=== PATIENT | female | born 2000 | race African-American/Black ===

== ENCOUNTER 2021-09-02 09:02 | Observation (INO) | payer MEDICAID, OTHER, SELFPAY ==
[2021-09-02] MEDS ORDERED: Pantoprazole 40 MG VIAL ONE (09:29)
[2021-09-02] MEDS ORDERED: Ketorolac Tromethamine 30 MG/ML VIAL ONE ×2 (09:29→21:38)
[2021-09-02 09:42] LABS: #Basophils 0.1 thou/uL (0.0-0.2); #Lymphocytes 1.3 thou/uL (1.20-3.40); #Monocytes 0.8 thou/uL (0.11-0.59); #Neutrophils 15.3 thou/uL (1.40-6.50); %Basophils 0.3 % (0.0-1.0); %Eosinophils 0.2 % (0.0-10.0); %Lymphocytes 7.2 % (21.0-51.0); %Monocytes 4.5 % (0.0-10.0); %Neutrophils 87.9 % (42.0-75.0); Hemoglobin 12.8 g/dL (12.0-16.0); Mean Corpuscular HGB CONC 32.4 g/dL (32.0-36.0); Mean Corpuscular Hemoglobin 25.8 pg (27.0-31.0); Mean Corpuscular Volume 79.8 fL (78.0-98.0); Platelet Count 328 thou/uL (130-400); RBC Distribution Width 15.1 % (11.5-14.5); Red Blood Cell (RBC) Count 4.95 mill/uL (4.20-5.40); White Blood Cell (WBC) Count 17.4 thou/uL (4.8-10.8)
[2021-09-02 10:02] LABS: ALT (SGPT) 129 U/L (8-55); AST (SGOT) 266 U/L (5-34); Albumin 3.9 g/dL (3.5-5.0); Alkaline Phosphatase 164 U/L (40-110); Anion Gap 10 mmol/L (10-20); BUN (Urea Nitrogen) 16 mg/dL (7.0-18.7); Bilirubin, Total 0.5 mg/dL (0.2-1.2); Calc. Creatinine Clearance 0 mL/min (70-130); Calcium 9.5 mg/dL (7.8-10.44); Carbon Dioxide 27 mmol/L (22-29); Chloride 103 mmol/L (98-107); Globulin 4.1 g/dL (2.4-3.5); Glucose 106 mg/dL (70-105); Lipase 22 U/L (8-78); Potassium 4.3 mmol/L (3.5-5.1); Sodium 136 mmol/L (136-145)
[2021-09-02 10:04] LABS: BHCG - Serum Negative (NEGATIVE); Pregs Control Background? CLEAR/WHITE (CLR/WHITE); Pregs Control Bar Appear? YES (CONTROL BAR)
[2021-09-02 10:36] LABS: Bacteria/HPF 1+ HPF (None Seen); Bilirubin Negative (Negative); Blood, Urine Negative (Negative); Clarity Clear (Clear); Glucose, Urine (Dipstick) Normal (Negative); Ketone, Urine Negative (Negative); Leukocyte 25 Leu/uL (Negative); Nitrite Negative (Negative); Protein, Urine (Dipstick) 30 mg/dL (Neg-Trace); RBC/HPF 0-3 HPF (0-3); Specific Gravity, Urine 1.031 (1.002-1.036); Urobilinogen 3 mg/dL (Less than 2); pH, Urine 7.5 (5.0-9.0)
[2021-09-02] MEDS ORDERED: CEFAZOLIN 2 GM in Premix Bag 1 BAG IVPB SCH (10:45)
[2021-09-02] MEDS ORDERED: CEFAZOLIN 2 GM in Sodium Chloride 0.9% 100 ML IVPB SCH (11:15)
[2021-09-02] MEDS ORDERED: Piperacillin/Tazobactam 4.5 GM in Sodium Chloride 0.9% 100 ML IVPB SCH (11:30)
[2021-09-02] MEDS ORDERED: Scopolamine 1.5 mg/72 hour Patch ONE (11:31)
[2021-09-02] MEDS ORDERED: Midazolam HCl 2 mg/2 ml Vial ONE (11:31)
[2021-09-02] MEDS ORDERED: Fentanyl 100 MCG/2 ML VIAL ONE ×3 (11:31→21:34)
[2021-09-02 11:50] LABS: SARS-CoV-2 NAA Rapid Test Not Detected (NotDetected)
[2021-09-02] MEDS ORDERED: Bupivacaine PF 0.5% 30 ML VIAL ONE (13:39)
[2021-09-02] MEDS ORDERED: Iothalamate Meglumine 60% 50 ML VIAL FS ONE (13:39)
[2021-09-02] MEDS ORDERED: Lidocaine 1% w/Epinephrine 1:100K 20 ML VIAL ONE (13:39)
[2021-09-02] MEDS ORDERED: SUGAMMADEX SODIUM 200 MG/2 ML VIAL ONE (13:45)
[2021-09-02] MEDS ORDERED: Dexmedetomidine 200 MCG/2 ML VIAL ONE (14:04)
[2021-09-02] MEDS ORDERED: Phenylephrine 10 MG/ML VIAL ONE (14:06)
[2021-09-02] MEDS ORDERED: Sodium Chloride 0.9% 0 ML ONE (14:33)
[2021-09-02] MEDS ORDERED: CEFAZOLIN 1 GM VIAL ONE ×2 (14:33→14:34)
[2021-09-02] MEDS ORDERED: Ondansetron PF 4 MG/2 ML Vial ONE (19:14)
[2021-09-02] MEDS ORDERED: Dexamethasone 20 MG/5 ML VIAL ONE (19:14)
[2021-09-02] MEDS ORDERED: PHENYLEPHRINE-NS 100 MCG/ML 10 ML SYRINGE ONE (19:14)
[2021-09-02] MEDS ORDERED: PROPOFOL 200 MG/20 ML VIAL ONE (19:14)
[2021-09-02] MEDS ORDERED: Rocuronium Bromide 10 MG/ML (10ML VIAL) ONE (19:14)
[2021-09-02] MEDS ORDERED: Glycopyrrolate 0.2 MG/ML 5 ML SYRINGE ONE (19:14)
[2021-09-02] MEDS ORDERED: Lidocaine 1% PF 5 ML VIAL ONE (19:14)
[2021-09-02] MEDS ORDERED: hydrALAZINE 20 MG/ML VIAL SLOW IVP PRN (20:56)
[2021-09-02] MEDS ORDERED: Promethazine HCl 25 MG/ML VIAL IM PRN ×2 (20:56→21:01)
[2021-09-02] MEDS ORDERED: Ondansetron PF 4 MG/2 ML Vial IVP PRN (20:56)
[2021-09-02] MEDS ORDERED: Dextrose 50% Abboject 50 ML SYRINGE SLOW IVP PRN (20:56)
[2021-09-02] MEDS ORDERED: Mag-Al 1200 mg/1200 mg/30 ML UDCUP PO PRN (20:56)
[2021-09-02] MEDS ORDERED: Dextrose 5% in Water 1,000 ML IV PRN (20:56)
[2021-09-02] MEDS ORDERED: Calcium Carbonate 500 MG ChewTAB PO PRN (20:56)
[2021-09-02] MEDS ORDERED: traMADol HCl 50 MG TAB PO PRN ×2 (20:58)
[2021-09-02] MEDS ORDERED: Ketorolac Tromethamine 30 MG/ML VIAL IVP PRN ×2 (20:58→21:01)
[2021-09-02] MEDS ORDERED: Promethazine HCl 25 MG/ML VIAL IVPB PRN (21:01)
[2021-09-02] MEDS ORDERED: Ondansetron HCl/PF 4 MG/2 ML Vial IVP PRN (21:01)
[2021-09-02] MEDS: D5 1/2 NS w/20 mEq KCL 1,000 ML IV SCH (22:54)
[2021-09-02] MEDS: Famotidine/PF 20 mg/2ml Vial SLOW IVP SCH (22:54)
[2021-09-02 23:21] VITALS: BMI 48.1
[2021-09-03] MEDS: Acetaminophen 325 MG TAB PO SCH ×3 (00:20→11:35)
[2021-09-03] MEDS: Famotidine 20 MG TAB PO SCH ×2 (01:37→08:19)
[2021-09-03 04:48] LABS: #Basophils 0.1 thou/uL (0.0-0.2); #Lymphocytes 0.9 thou/uL (1.20-3.40); #Monocytes 0.1 thou/uL (0.11-0.59); #Neutrophils 10.4 thou/uL (1.40-6.50); %Basophils 0.5 % (0.0-1.0); %Eosinophils 0.1 % (0.0-10.0); %Lymphocytes 7.4 % (21.0-51.0); %Monocytes 1.2 % (0.0-10.0); %Neutrophils 90.8 % (42.0-75.0); Hemoglobin 11.7 g/dL (12.0-16.0); Mean Corpuscular Hemoglobin 25.6 pg (27.0-31.0); Mean Corpuscular Volume 79.9 fL (78.0-98.0); Mean Platelet Volume 8.3 fL (7.4-10.4); Platelet Count 312 thou/uL (130-400); RBC Distribution Width 15.2 % (11.5-14.5); Red Blood Cell (RBC) Count 4.57 mill/uL (4.20-5.40); White Blood Cell (WBC) Count 11.5 thou/uL (4.8-10.8)
[2021-09-03 05:11] LABS: ALT (SGPT) 165 U/L (8-55); AST (SGOT) 110 U/L (5-34); Albumin 3.6 g/dL (3.5-5.0); Alkaline Phosphatase 148 U/L (40-110); Anion Gap 11 mmol/L (10-20); BUN (Urea Nitrogen) 9 mg/dL (7.0-18.7); Bilirubin, Total 0.3 mg/dL (0.2-1.2); Calc. Creatinine Clearance 275 mL/min (70-130); Calcium 8.7 mg/dL (7.8-10.44); Carbon Dioxide 23 mmol/L (22-29); Chloride 106 mmol/L (98-107); Globulin 3.4 g/dL (2.4-3.5); Glucose 145 mg/dL (70-105); Lipase 12 U/L (8-78); Potassium 4.5 mmol/L (3.5-5.1); Sodium 135 mmol/L (136-145)
[2021-09-03] MEDS: D5 1/2 NS w/20 mEq KCL 1,000 ML IV SCH (05:35)
[2021-09-03 07:51] VITALS: BP 103/67; TEMP 97.6
[2021-09-03] MEDS: Famotidine/PF 20 mg/2ml Vial SLOW IVP SCH (08:20)
[2021-09-03] MEDS ORDERED: FLU VACC QS2021-22(6MOS UP)/PF 60 MCG/0.5 ML SYRINGE IM ONE (09:00)
== END 2021-09-03 12:31 | disposition home or self-care (01) ==
LOC: ERS 09:02 → SURG A 12:46 → SDC 12:46 → SURG A 21:01
PROVIDERS: ADMIT Surgery; ATTEND Surgery
PROC: 0FT44ZZ Resection of Gallbladder, Percutaneous Endoscopic Approach (ICD-10-PCS; principal; 2021-09-02)
DX: K80.12 Calculus of gallbladder with acute and chronic cholecystitis without obstruction (principal); K66.0 Peritoneal adhesions (postprocedural) (postinfection); E66.01 Morbid (severe) obesity due to excess calories; Z68.42 Body mass index [BMI] 45.0-49.9, adult; Z20.822 Contact with and (suspected) exposure to COVID-19
CPT/HCPCS: 36415; 76705; 80053; 81003; 81015; 83690; 84703; 85025; 88304; 90471; 90686; 94760; 96365; 96374; 96375; C9113; G0008; G0378; J0690; J1100; J1610; J1885; J2250; J2370; J2405; J2543; J2704; J3010; J3480; J3490; Q9961-U8; S0020; S0028; U0002

== ENCOUNTER 2021-09-06 10:43 | Emergency (ER) | payer OTHER ==
[2021-09-06] MEDS ORDERED: Ondansetron PF 4 MG/2 ML Vial ONE (12:19)
[2021-09-06] MEDS ORDERED: Morphine 4 MG/ML VIAL ONE (12:19)
[2021-09-06 12:26] LABS: BHCG - Serum Negative (NEGATIVE); Pregs Control Background? CLEAR/WHITE (CLR/WHITE); Pregs Control Bar Appear? YES (CONTROL BAR)
[2021-09-06 12:27] LABS: Hemoglobin 12.3 g/dL (12.0-16.0); Mean Corpuscular HGB CONC 32.3 g/dL (32.0-36.0); Mean Corpuscular Hemoglobin 25.8 pg (27.0-31.0); Mean Corpuscular Volume 79.9 fL (78.0-98.0); Mean Platelet Volume 7.8 fL (7.4-10.4); Platelet Count 314 thou/uL (130-400); RBC Distribution Width 15.5 % (11.5-14.5); Red Blood Cell (RBC) Count 4.77 mill/uL (4.20-5.40)
[2021-09-06 12:47] LABS: ALT (SGPT) 45 U/L (8-55); AST (SGOT) 17 U/L (5-34); Albumin 3.8 g/dL (3.5-5.0); Alkaline Phosphatase 106 U/L (40-110); Anion Gap 11 mmol/L (10-20); Anisocytosis SLIGHT = 6-15 cells (100X) (0-5/hpf); BUN (Urea Nitrogen) 10 mg/dL (7.0-18.7); Band 1 % (5-11); Bilirubin, Total 0.4 mg/dL (0.2-1.2); Calc. Creatinine Clearance 0 mL/min (70-130); Calcium 9.5 mg/dL (7.8-10.44); Carbon Dioxide 26 mmol/L (22-29); Chloride 102 mmol/L (98-107); Eosinophils 3 % (0-10); Globulin 3.6 g/dL (2.4-3.5); Glucose 85 mg/dL (70-105); Lipase 15 U/L (8-78); Lymphocytes 24 % (21-51); MDiff Complete? YES; Monocytes 8 % (0-10); Neutrophil 64 % (42-75); Platelet Morphology Comment Appears Adequate; Polychromasia SLIGHT = 2-3 cells (100X) (0-2/hpf); Protein, Total 7.4 g/dL (6.0-8.3); Sodium 135 mmol/L (136-145); White Blood Cell (WBC) Count 10.7 thou/uL (4.8-10.8)
== END 2021-09-06 16:55 | disposition home or self-care (01) ==
LOC: ERS 10:43
DX: K59.00 Constipation, unspecified (principal); N61.1 Abscess of the breast and nipple
CPT/HCPCS: 36415; 76705; 80053; 83605; 83690; 84703; 85025; 96374; 96375; J2270; J2405

== ENCOUNTER 2022-01-23 09:54 | Inpatient (IN) | payer OTHER ==
[2022-01-23] MEDS ORDERED: Albuterol 200 PUFF (6.7GM INHALER) ONE ×2 (10:19→10:22)
[2022-01-23] MEDS ORDERED: cefTRIAXone\\ROCEPHIN 1 GM VIAL ONE (10:22)
[2022-01-23] MEDS ORDERED: methylPREDNISolone Sod Succ/PF 125 MG/2 ML VIAL ONE (10:22)
[2022-01-23] MEDS ORDERED: Azithromycin 500 MG VIAL ONE (10:22)
[2022-01-23 10:36] LABS: #Basophils 0.1 thou/uL (0.0-0.2); #Eosinphils 0.8 thou/uL (0.0-0.7); #Lymphocytes 1.8 thou/uL (1.20-3.40); #Monocytes 0.7 thou/uL (0.11-0.59); #Neutrophils 10.8 thou/uL (1.40-6.50); %Basophils 0.4 % (0.0-1.0); %Eosinophils 5.4 % (0.0-10.0); %Lymphocytes 12.8 % (21.0-51.0); %Monocytes 4.9 % (0.0-10.0); %Neutrophils 76.5 % (42.0-75.0); Hemoglobin 12.5 g/dL (12.0-16.0); Mean Corpuscular HGB CONC 30.5 g/dL (32.0-36.0); Mean Corpuscular Hemoglobin 24.3 pg (27.0-31.0); Mean Corpuscular Volume 79.6 fL (78.0-98.0); Mean Platelet Volume 7.9 fL (7.4-10.4); Platelet Count 276 thou/uL (130-400); RBC Distribution Width 14.8 % (11.5-14.5); Red Blood Cell (RBC) Count 5.14 mill/uL (4.20-5.40); White Blood Cell (WBC) Count 14.1 thou/uL (4.8-10.8)
[2022-01-23 10:52] LABS: Bacteria/HPF None Seen HPF (None Seen); Bilirubin Negative (Negative); Blood, Urine 1+ (Negative); Clarity Turbid (Clear); Glucose, Urine (Dipstick) Normal (Negative); Ketone, Urine Negative (Negative); Leukocyte 250 Leu/uL (Negative); Nitrite Negative (Negative); Protein, Urine (Dipstick) 20 mg/dL (Neg-Trace); Specific Gravity, Urine 1.018 (1.002-1.036); Squamous Epithelial 0-3 HPF (0-3); Urobilinogen Normal mg/dL (Less than 2); WBC/HPF 21-50 HPF (0-3)
[2022-01-23 10:58] LABS: ALT (SGPT) 13 U/L (8-55); AST (SGOT) 13 U/L (5-34); Albumin 3.8 g/dL (3.5-5.0); Alkaline Phosphatase 97 U/L (40-110); Anion Gap 13 mmol/L (10-20); BUN (Urea Nitrogen) 8 mg/dL (7.0-18.7); Bilirubin, Total 0.4 mg/dL (0.2-1.2); Calc. Creatinine Clearance 0 mL/min (70-130); Calcium 8.8 mg/dL (7.8-10.44); Carbon Dioxide 23 mmol/L (22-29); Chloride 107 mmol/L (98-107); Globulin 3.8 g/dL (2.4-3.5); Glucose 84 mg/dL (70-105); Potassium 3.9 mmol/L (3.5-5.1); Protein, Total 7.6 g/dL (6.0-8.3); Sodium 139 mmol/L (136-145)
[2022-01-23 11:16] LABS: SARS-CoV-2 NAA Rapid Test Not Detected (NotDetected)
[2022-01-23 11:50] LABS: BHCG - Serum Negative (NEGATIVE)
[2022-01-23 11:51] LABS: Pregs Control Background? CLEAR/WHITE (CLR/WHITE); Pregs Control Bar Appear? YES (CONTROL BAR)
[2022-01-23] MEDS ORDERED: Acetaminophen 650 MG Suppository PR PRN (14:25)
[2022-01-23] MEDS ORDERED: Ondansetron ODT 4 MG TAB PO PRN (14:25)
[2022-01-23] MEDS ORDERED: Guaifenesin DM 100-10/5 ML UDCUP PO PRN (14:25)
[2022-01-23] MEDS ORDERED: Acetaminophen 325 MG TAB PO PRN (14:25)
[2022-01-23] MEDS ORDERED: Ondansetron PF 4 MG/2 ML Vial IVP PRN (14:25)
[2022-01-23 15:06] LABS: Prothrombin Time 13.5 sec (12.0-14.7)
[2022-01-23 15:08] LABS: D-Dimer Test 0.57 *mcg/mL (0.27-0.43)
[2022-01-23 15:17] VITALS: BMI 48.6
[2022-01-23] MEDS: methylPREDNISolone Sod Succ 40 MG VIAL IVP SCH ×2 (18:16→23:06)
[2022-01-24 04:42] LABS: #Lymphocytes 1.7 thou/uL (1.20-3.40); #Monocytes 0.1 thou/uL (0.11-0.59); #Neutrophils 14.3 thou/uL (1.40-6.50); %Basophils 0.2 % (0.0-1.0); %Eosinophils 0.1 % (0.0-10.0); %Lymphocytes 10.5 % (21.0-51.0); %Monocytes 0.7 % (0.0-10.0); %Neutrophils 88.6 % (42.0-75.0); Hemoglobin 12.1 g/dL (12.0-16.0); Mean Corpuscular HGB CONC 30.9 g/dL (32.0-36.0); Mean Corpuscular Hemoglobin 24.6 pg (27.0-31.0); Mean Corpuscular Volume 79.5 fL (78.0-98.0); Mean Platelet Volume 7.9 fL (7.4-10.4); Platelet Count 309 thou/uL (130-400); RBC Distribution Width 14.9 % (11.5-14.5); Red Blood Cell (RBC) Count 4.93 mill/uL (4.20-5.40); White Blood Cell (WBC) Count 16.2 thou/uL (4.8-10.8)
[2022-01-24 04:56] LABS: Anion Gap 9 mmol/L (10-20); BUN (Urea Nitrogen) 10 mg/dL (7.0-18.7); Calc. Creatinine Clearance 276 mL/min (70-130); Calcium 9.2 mg/dL (7.8-10.44); Carbon Dioxide 24 mmol/L (22-29); Chloride 107 mmol/L (98-107); Glucose 140 mg/dL (70-105); Potassium 4.4 mmol/L (3.5-5.1); Sodium 136 mmol/L (136-145)
[2022-01-24] MEDS: methylPREDNISolone Sod Succ 40 MG VIAL IVP SCH (05:03)
[2022-01-24] MEDS: cefTRIAXone\\ROCEPHIN 1 GM in Sodium Chloride 0.9% 100 ML IVPB SCH (09:31)
[2022-01-24] MEDS: Enoxaparin Sodium 40 MG/0.4 ML SYRINGE SC SCH (09:31)
[2022-01-24] MEDS: Azithromycin 500 MG in Sodium Chloride 0.9% 250 ML 250 ML IVPB SCH (13:03)
[2022-01-24] MEDS: Budesonide 0.25 MG/2 ML NEB INH SCH (18:46)
[2022-01-25 02:24] LABS: #Basophils 0.1 thou/uL (0.0-0.2); #Lymphocytes 3.5 thou/uL (1.20-3.40); #Monocytes 1.1 thou/uL (0.11-0.59); #Neutrophils 12.5 thou/uL (1.40-6.50); %Basophils 0.3 % (0.0-1.0); %Eosinophils 0.1 % (0.0-10.0); %Lymphocytes 20.4 % (21.0-51.0); %Monocytes 6.3 % (0.0-10.0); %Neutrophils 72.9 % (42.0-75.0); Mean Corpuscular HGB CONC 31.5 g/dL (32.0-36.0); Mean Corpuscular Hemoglobin 25.1 pg (27.0-31.0); Mean Corpuscular Volume 79.5 fL (78.0-98.0); Mean Platelet Volume 7.7 fL (7.4-10.4); Platelet Count 282 thou/uL (130-400); RBC Distribution Width 15.2 % (11.5-14.5); Red Blood Cell (RBC) Count 4.39 mill/uL (4.20-5.40); White Blood Cell (WBC) Count 17.1 thou/uL (4.8-10.8)
[2022-01-25 02:41] LABS: Magnesium 1.9 mg/dL (1.6-2.6)
[2022-01-25 02:48] LABS: Anion Gap 11 mmol/L (10-20); BUN (Urea Nitrogen) 13 mg/dL (7.0-18.7); Calc. Creatinine Clearance 276 mL/min (70-130); Calcium 8.4 mg/dL (7.8-10.44); Carbon Dioxide 23 mmol/L (22-29); Chloride 106 mmol/L (98-107); Glucose 98 mg/dL (70-105); Potassium 3.8 mmol/L (3.5-5.1); Sodium 136 mmol/L (136-145)
[2022-01-25] MEDS: Budesonide 0.25 MG/2 ML NEB INH SCH ×2 (07:16→18:56)
[2022-01-25] MEDS ORDERED: predniSONE 20 MG TAB PO SCH (08:00)
[2022-01-25] MEDS: Enoxaparin Sodium 40 MG/0.4 ML SYRINGE SC SCH (09:05)
[2022-01-25] MEDS: cefTRIAXone\\ROCEPHIN 1 GM in Sodium Chloride 0.9% 100 ML IVPB SCH (09:05)
[2022-01-25] MEDS: Azithromycin 500 MG in Sodium Chloride 0.9% 250 ML 250 ML IVPB SCH ×2 (12:48→13:39)
[2022-01-25] MEDS: METHYLPREDNISOLONE SOD SUCC IVPB SCH (20:11)
[2022-01-25] MEDS: SODIUM CHLORIDE 0.9% IVPB SCH (20:11)
[2022-01-26 04:52] LABS: #Lymphocytes 1.6 thou/uL (1.20-3.40); #Monocytes 0.4 thou/uL (0.11-0.59); #Neutrophils 11.9 thou/uL (1.40-6.50); %Basophils 0.1 % (0.0-1.0); %Eosinophils 0.1 % (0.0-10.0); %Lymphocytes 11.2 % (21.0-51.0); %Monocytes 2.6 % (0.0-10.0); Hemoglobin 12.3 g/dL (12.0-16.0); Mean Corpuscular HGB CONC 31.9 g/dL (32.0-36.0); Mean Corpuscular Hemoglobin 25.4 pg (27.0-31.0); Mean Corpuscular Volume 79.8 fL (78.0-98.0); Mean Platelet Volume 7.7 fL (7.4-10.4); Platelet Count 329 thou/uL (130-400); Red Blood Cell (RBC) Count 4.86 mill/uL (4.20-5.40); White Blood Cell (WBC) Count 13.9 thou/uL (4.8-10.8)
[2022-01-26 05:12] LABS: Anion Gap 12 mmol/L (10-20); BUN (Urea Nitrogen) 14 mg/dL (7.0-18.7); Calc. Creatinine Clearance 267 mL/min (70-130); Calcium 9.3 mg/dL (7.8-10.44); Carbon Dioxide 24 mmol/L (22-29); Chloride 105 mmol/L (98-107); Glucose 159 mg/dL (70-105); Potassium 4.5 mmol/L (3.5-5.1); Sodium 136 mmol/L (136-145)
[2022-01-26] MEDS: Budesonide 0.25 MG/2 ML NEB INH SCH (07:20)
[2022-01-26 07:27] VITALS: BP 123/79; TEMP 97.8
[2022-01-26] MEDS: SODIUM CHLORIDE 0.9% IVPB SCH (09:33)
[2022-01-26] MEDS: METHYLPREDNISOLONE SOD SUCC IVPB SCH (09:33)
[2022-01-26] MEDS: Enoxaparin Sodium 40 MG/0.4 ML SYRINGE SC SCH (10:21)
[2022-01-26] MEDS ORDERED: predniSONE 20 MG TAB PO SCH (10:45)
[2022-01-27] MEDS ORDERED: predniSONE 20 MG TAB PO SCH (08:00)
== END 2022-01-26 12:30 | disposition home or self-care (01) | DRG 872 ==
LOC: ERS 09:54 → 2SW 13:43 → OBSVTOIN 01-24 09:46
PROVIDERS: ADMIT Internal Medicine; ATTEND Internal Medicine
DX: A41.9 Sepsis, unspecified organism (principal); N39.0 Urinary tract infection, site not specified; I47.2 Ventricular tachycardia; Z68.42 Body mass index [BMI] 45.0-49.9, adult; Z20.822 Contact with and (suspected) exposure to COVID-19; L73.2 Hidradenitis suppurativa; F32.A Depression, unspecified; E66.9 Obesity, unspecified; G47.33 Obstructive sleep apnea (adult) (pediatric); J40 Bronchitis, not specified as acute or chronic; I49.5 Sick sinus syndrome; Z91.018 Allergy to other foods; Z90.49 Acquired absence of other specified parts of digestive tract
CPT/HCPCS: 0240U; 36415; 71045; 71275; 74177; 80048; 80053; 81003; 81015; 83605; 83735; 83880; 84484; 84703; 85025; 85379; 85610; 85652; 86140; 87040; 87070; 87077; 87086; 87205; 87633; 93005; 93010; 93306; 94640; 96365; 96367; 96372; 96375; 96376; G0378; J0456; J0696; J1650; J2405; J2920; J2930; J3490; J7050; J7512; J7620; J7626

== ENCOUNTER 2022-07-08 08:29 | Emergency (ER) | payer OTHER ==
[2022-07-08 09:11] LABS: #Eosinphils 0.8 thou/uL (0.0-0.7); #Lymphocytes 1.6 thou/uL (1.20-3.40); #Monocytes 0.7 thou/uL (0.11-0.59); #Neutrophils 9.4 thou/uL (1.40-6.50); %Basophils 0.1 % (0.0-1.0); %Eosinophils 6.1 % (0.0-10.0); %Lymphocytes 12.8 % (21.0-51.0); %Monocytes 5.3 % (0.0-10.0); %Neutrophils 75.7 % (42.0-75.0); Hemoglobin 11.7 g/dL (12.0-16.0); Mean Corpuscular HGB CONC 31.4 g/dL (32.0-36.0); Mean Corpuscular Hemoglobin 24.8 pg (27.0-31.0); Mean Corpuscular Volume 79.2 fL (78.0-98.0); Mean Platelet Volume 8.2 fL (7.4-10.4); Platelet Count 290 thou/uL (130-400); RBC Distribution Width 14.9 % (11.5-14.5); Red Blood Cell (RBC) Count 4.72 mill/uL (4.20-5.40); White Blood Cell (WBC) Count 12.5 thou/uL (4.8-10.8)
[2022-07-08 09:19] LABS: BHCG - Serum Negative (NEGATIVE); Pregs Control Background? CLEAR/WHITE (CLR/WHITE); Pregs Control Bar Appear? YES (CONTROL BAR)
[2022-07-08 09:33] LABS: ALT (SGPT) 14 U/L (8-55); AST (SGOT) 16 U/L (5-34); Albumin 4.2 g/dL (3.5-5.0); Alkaline Phosphatase 87 U/L (40-110); Anion Gap 16 mmol/L (10-20); BUN (Urea Nitrogen) 9 mg/dL (7.0-18.7); Bilirubin, Total 0.5 mg/dL (0.2-1.2); Calc. Creatinine Clearance 0 mL/min (70-130); Calcium 9.6 mg/dL (7.8-10.44); Carbon Dioxide 24 mmol/L (22-29); Chloride 103 mmol/L (98-107); Estimated GFR 123; Globulin 3.6 g/dL (2.4-3.5); Glucose 90 mg/dL (70-105); Lipase 16 U/L (8-78); Potassium 3.8 mmol/L (3.5-5.1); Protein, Total 7.8 g/dL (6.0-8.3); Sodium 139 mmol/L (136-145)
[2022-07-08 09:37] LABS: SARS-CoV-2 NAA Rapid Test Not Detected (NotDetected)
== END 2022-07-08 10:25 | disposition home or self-care (01) ==
LOC: ERS 08:29
DX: B34.9 Viral infection, unspecified (principal); Z20.822 Contact with and (suspected) exposure to COVID-19
CPT/HCPCS: 36415; 71045; 80053; 83690; 84703; 85025; 96360; 96361; U0002

== ENCOUNTER 2022-07-31 21:39 | Emergency (ER) | payer OTHER ==
[2022-07-31] MEDS ORDERED: Morphine 4 MG/ML VIAL ONE (22:15)
[2022-07-31] MEDS ORDERED: Ketorolac Tromethamine 30 MG/ML VIAL ONE ×2 (22:15→22:17)
== END 2022-08-01 02:01 | disposition home or self-care (01) ==
LOC: ERS 21:39
DX: K04.7 Periapical abscess without sinus (principal); K02.9 Dental caries, unspecified; R51.9 Headache, unspecified
CPT/HCPCS: 96372; 99284; J1885; J2270

== ENCOUNTER 2023-06-29 00:41 | Emergency (ER) | payer OTHER ==
[2023-06-29 01:20] LABS: #Eosinphils 0.2 thou/uL (0.0-0.7); #Monocytes 1.3 thou/uL (0.11-0.59); #Neutrophils 11.8 thou/uL (1.40-6.50); %Basophils 0.1 % (0.0-1.0); %Eosinophils 1.1 % (0.0-10.0); %Lymphocytes 12.3 % (21.0-51.0); %Monocytes 8.6 % (0.0-10.0); %Neutrophils 77.5 % (42.0-75.0); Hemoglobin 11.4 g/dL (12.0-16.0); Mean Corpuscular HGB CONC 31.7 g/dL (32.0-36.0); Mean Corpuscular Hemoglobin 24.6 pg (27.0-31.0); Mean Corpuscular Volume 77.6 fl (78.0-98.0); Mean Platelet Volume 9.7 fL (7.4-10.4); Platelet Count 303 10x3/uL (130-400); RBC Distribution Width 16.3 % (11.5-14.5); Red Blood Cell (RBC) Count 4.64 mill/uL (4.20-5.40); White Blood Cell (WBC) Count 15.2 10x3/uL (4.8-10.8)
[2023-06-29] MEDS ORDERED: Ondansetron PF 4 MG/2 ML Vial ONE ×2 (01:22→03:17)
[2023-06-29] MEDS ORDERED: Ketorolac Tromethamine 30 MG/ML VIAL ONE (01:22)
[2023-06-29] MEDS ORDERED: Pantoprazole 40 MG VIAL ONE (01:23)
[2023-06-29 01:31] LABS: Bacteria/HPF None Seen HPF (None Seen); Bilirubin Negative (Negative); Blood, Urine 2+ (Negative); CAUTI Indications for Culture Pelvic or flank pain; Clarity Clear (Clear); Glucose, Urine (Dipstick) Normal (Negative); Ketone, Urine Negative (Negative); Leukocyte 500 Leu/uL (Negative); Nitrite Negative (Negative); Protein, Urine (Dipstick) 30 mg/dL (Neg-Trace); RBC/HPF 0-3 HPF (0-3); Specific Gravity, Urine 1.032 (1.002-1.036); Squamous Epithelial None Seen HPF (0-3); Urobilinogen Normal mg/dL (Less than 2); WBC/HPF 0-3 HPF (0-3); pH, Urine 5.5 (5.0-9.0)
[2023-06-29 01:33] LABS: Urine Culture Reflex No No
[2023-06-29 01:34] LABS: BHCG - Serum Negative (NEGATIVE); Pregs Control Background? CLEAR/WHITE (CLR/WHITE); Pregs Control Bar Appear? YES (CONTROL BAR)
[2023-06-29 01:43] LABS: ALT (SGPT) 9 U/L (8-55); AST (SGOT) 14 U/L (5-34); Alkaline Phosphatase 94 U/L (40-110); Anion Gap 12 mmol/L (10-20); BUN (Urea Nitrogen) 17 mg/dL (7.0-18.7); Bilirubin, Total 0.3 mg/dL (0.2-1.2); Calc. Creatinine Clearance 0 mL/min (70-130); Calcium 9.3 mg/dL (7.8-10.44); Carbon Dioxide 21 mmol/L (22-29); Chloride 106 mmol/L (98-107); Estimated GFR 126; Globulin 3.6 g/dL (2.4-3.5); Glucose 110 mg/dL (70-105); Lipase 15 U/L (8-78); Protein, Total 7.6 g/dL (6.0-8.3); Sodium 135 mmol/L (136-145)
[2023-06-29] MEDS ORDERED: Promethazine HCl 25 MG/ML VIAL ONE (04:41)
== END 2023-06-29 05:52 | disposition home or self-care (01) ==
LOC: ERS 00:41
DX: R10.9 Unspecified abdominal pain (principal); R11.10 Vomiting, unspecified
CPT/HCPCS: 36415; 74177; 80053; 81001; 83690; 84703; 85025; 87086; 96361; 96374; 96375; 96376; C9113; J1885; J2405; J2550

== ENCOUNTER 2024-05-26 21:45 | Emergency (ER) | payer MEDICAID, OTHER ==
[2024-05-27 01:57] LABS: #Basophils 0.04 10x3/uL (0.0-0.2); %Basophils 0.4 % (0.0-1.0); %Eosinophils 2.2 % (0.0-10.0); %Lymphocytes 34.7 % (21.0-51.0); %Monocytes 7.5 % (0.0-10.0); %Neutrophils 54.9 % (42.0-75.0); Hematocrit 35.3 % (36.0-47.0); Hemoglobin 11.1 g/dL (12.0-16.0); Mean Corpuscular HGB CONC 31.4 g/dL (32.0-36.0); Mean Corpuscular Hemoglobin 24.9 pg (27.0-31.0); Mean Corpuscular Volume 79.1 fL (78.0-98.0); Mean Platelet Volume 10.1 fL (7.4-10.4); Platelet Count 304 10x3/uL (130-400); RBC Distribution Width 17.3 % (11.5-14.5); Red Blood Cell (RBC) Count 4.46 mill/uL (4.20-5.40)
[2024-05-27 02:42] LABS: BHCG - Serum Negative (NEGATIVE); Pregs Control Background? CLEAR/WHITE (CLR/WHITE); Pregs Control Bar Appear? YES (CONTROL BAR)
[2024-05-27 02:51] LABS: ALT (SGPT) 15 U/L (8-55); AST (SGOT) 19 U/L (5-34); Albumin 3.7 g/dL (3.5-5.0); Alkaline Phosphatase 77 U/L (40-110); Anion Gap 12 mmol/L (10-20); BUN (Urea Nitrogen) 7 mg/dL (7.0-18.7); Bilirubin, Total 0.5 mg/dL (0.2-1.2); Calc. Creatinine Clearance 0 mL/min (70-130); Calcium 9.5 mg/dL (7.8-10.44); Carbon Dioxide 24 mmol/L (22-29); Chloride 106 mmol/L (98-107); Estimated GFR 126; Globulin 3.4 g/dL (2.4-3.5); Glucose 82 mg/dL (70-105); Potassium 3.5 mmol/L (3.5-5.1); Protein, Total 7.1 g/dL (6.0-8.3); Sodium 138 mmol/L (136-145)
== END 2024-05-27 03:08 | disposition home or self-care (01) ==
LOC: ERS 21:45
DX: T67.5XXA Heat exhaustion, unspecified, initial encounter (principal); R42 Dizziness and giddiness; Z00.00 Encounter for general adult medical examination without abnormal findings
CPT/HCPCS: 36415; 80053; 84703; 85025; 99283

== ENCOUNTER 2025-09-19 22:08 | Observation (INO) | payer MEDICAID ==
[2025-09-19 22:33] LABS: #Basophils 0.04 10x3/uL (0.0-0.2); #Eosinophils 0.64 10x3/uL (0.0-0.7); #Monocytes 0.99 10x3/uL (0.11-0.59); #Neutrophils 10.31 10x3/uL (1.40-6.50); %Basophils 0.3 % (0.0-1.0); %Eosinophils 4.4 % (0.0-10.0); %Lymphocytes 17.9 % (21.0-51.0); %Monocytes 6.8 % (0.0-10.0); %Neutrophils 70.3 % (42.0-75.0); Hematocrit 35.7 % (36.0-47.0); Hemoglobin 11.1 g/dL (12.0-16.0); Mean Corpuscular Hemoglobin 24.1 pg (27.0-31.0); Mean Corpuscular Volume 77.6 fL (78.0-98.0); Platelet Count 293 10x3/uL (130-400); Red Blood Cell (RBC) Count 4.60 mill/uL (4.20-5.40); White Blood Cell (WBC) Count 14.66 10x3/uL (4.8-10.8)
[2025-09-19 22:39] LABS: BHCG - Serum Negative (NEGATIVE); Pregs Control Background? CLEAR/WHITE (CLR/WHITE); Pregs Control Bar Appear? YES (CONTROL BAR)
[2025-09-19 22:45] LABS: ALT (SGPT) 10 U/L (Less than 34); AST (SGOT) 19 U/L (11-34); Albumin 3.7 g/dL (3.1-4.5); Alkaline Phosphatase 100 U/L (40-110); Anion Gap 12 mmol/L (10-20); BUN (Urea Nitrogen) 10 mg/dL (7.0-18.7); Bilirubin, Total 0.1 mg/dL (0.3-1.2); Calc. Creatinine Clearance 0 mL/min (70-130); Calcium 8.8 mg/dL (7.8-10.44); Carbon Dioxide 23 mmol/L (22-29); Chloride 106 mmol/L (98-107); Globulin 3.6 g/dL (2.4-3.5); Glucose 109 mg/dL (70-105); Magnesium 1.8 mg/dL (1.6-2.6); Potassium 3.8 mmol/L (3.5-5.1); Sodium 137 mmol/L (136-145)
[2025-09-19] MEDS ORDERED: Magnesium 2 GM/50 ML BAG (IN WATER) ONE (23:17)
[2025-09-19] MEDS ORDERED: Albuterol 2.5 MG (3 mL) NEB ONE (23:17)
[2025-09-20 01:03] VITALS: BMI 49.6
[2025-09-20] MEDS ORDERED: Ondansetron PF 4 MG/2 ML Vial IVP PRN ×2 (01:30→03:23)
[2025-09-20] MEDS ORDERED: Albuterol 2.5 MG (3 mL) NEB NEB PRN (03:22)
[2025-09-20 04:51] LABS: #Basophils Less than 0.03 10x3/uL (0.0-0.2); #Eosinophils Less than 0.03 10x3/uL (0.0-0.7); #Monocytes 0.14 10x3/uL (0.11-0.59); #Neutrophils 12.69 10x3/uL (1.40-6.50); %Basophils 0.1 % (0.0-1.0); %Eosinophils 0.0 % (0.0-10.0); %Lymphocytes 3.9 % (21.0-51.0); %Monocytes 1.0 % (0.0-10.0); %Neutrophils 94.4 % (42.0-75.0); Hematocrit 34.8 % (36.0-47.0); Hemoglobin 10.7 g/dL (12.0-16.0); Mean Corpuscular Hemoglobin 23.7 pg (27.0-31.0); Mean Corpuscular Volume 77.2 fL (78.0-98.0); Platelet Count 308 10x3/uL (130-400); Red Blood Cell (RBC) Count 4.51 mill/uL (4.20-5.40); White Blood Cell (WBC) Count 13.45 10x3/uL (4.8-10.8)
[2025-09-20 05:02] LABS: Anion Gap 12 mmol/L (10-20); BUN (Urea Nitrogen) 9 mg/dL (7.0-18.7); Calc. Creatinine Clearance 321 mL/min (70-130); Calcium 9.1 mg/dL (7.8-10.44); Carbon Dioxide 21 mmol/L (22-29); Chloride 106 mmol/L (98-107); Glucose 190 mg/dL (70-105); Potassium 3.9 mmol/L (3.5-5.1); Sodium 135 mmol/L (136-145)
[2025-09-20] MEDS: Heparin 5,000 UNITS/ML VIAL SC SCH (08:24)
[2025-09-20] MEDS: predniSONE 20 MG TAB PO SCH (08:24)
[2025-09-20] MEDS: Acetaminophen 325 MG TAB PO PRN (08:31)
[2025-09-20] MEDS ORDERED: Enoxaparin 40 MG (0.4 mL) SYRINGE SC SCH (09:00)
[2025-09-20] MEDS ORDERED: Iopamidol 370 76% 100 ML VIAL ONE (11:52)
[2025-09-20 15:35] VITALS: BP 138/72; TEMP 98.2
[2025-09-23] MEDS ORDERED: FLU (Fluarix Triv) 25-26 (6MOS UP)/PF 45 MCG/0.5 ML Syringe IM ONE (09:00)
== END 2025-09-20 16:42 | disposition home or self-care (01) ==
LOC: ERS 22:08 → OBS 23:45
PROVIDERS: ADMIT Internal Medicine; ATTEND Internal Medicine
DX: J20.9 Acute bronchitis, unspecified (principal); R00.0 Tachycardia, unspecified; D64.9 Anemia, unspecified; Z90.49 Acquired absence of other specified parts of digestive tract; Z91.013 Allergy to seafood; Z79.51 Long term (current) use of inhaled steroids
CPT/HCPCS: 36415; 71045; 71275; 80048; 80053; 83735; 83880; 84484; 84703; 85025; 87428; 93005; 94640; 96365; 96372; 96375; G0378; J1644; J2919; J3475; J7030; J7512; J7611; Q9967